=== PATIENT | female | born 2000 | race Two or more races ===

== ENCOUNTER 2024-11-13 05:30 | Emergency (ER) | payer MEDICAID, OTHER ==
[~2024-11-13] VITALS: Ht 165.1 cm; Wt 72.3 kg
[2024-11-13 05:40] VITALS: BP 148/88; PULSE 130; RESP 20; TEMP 98.7; O2SAT 97
[2024-11-13] MEDS: methylPREDNISolone SOD SUCC 125 MG/2 ML VL IM ONE (06:45)
[2024-11-13] MEDS: diphenhdrAMINE HCL 50 MG/1 ML VL IM ONE (06:45)
[2024-11-13] MEDS ORDERED: METH4PAK PO (06:47)
[2024-11-13] MEDS ORDERED: TRIA0.1O TOP (06:47)
[2024-11-13] MEDS ORDERED: CEPH500C PO (06:47)
--- NOTE | 2024-11-13 06:51 | ED.PDOC ---
History of Present Illness(SKN HPI Comments A 24 YEAR OLD FEMALE PRESENTS TO THE ED WITH COMPLAINT OF ECZEMA. PATIENT REPORTS ON SEEING HER PCP ON 10/22/24 AND 10/23/24 DUE FROM THE PATIENT HAVING SEVERE ECZEMA, AND WANTED TO SEE A SPECIALIST, BUT THEY REFUSED. ON 11/05/2024 THE PATIENT IS STARTED HAVE FULL BODY ITCHINESS AND BURNING SENSATION DUE FROM THE ECZEMA, [id number] MEDICATIONS ARE NOT WORKING AT THE MOMENT. PATIENT NOTES THAT SHE WENT TO THE ER SHE WAS GIVEN STEROIDS. PATIENT DENIES FEVER, CHILLS, SHORTNESS OF BREATH, CHEST PAIN, ABDOMINAL PAIN, NAUSEA, VOMITING, HEADACHE, OR OTHER COMPLAINTS. NO OTHER SYMPTOMS OR MODIFYING FACTORS AT THIS TIME. PATIENT IS ALERT, ORIENTED X 4, AND HAS STEADY GAIT. Chief Complaint: Rash Time Seen by MD: 06:45 History of Present Illness: Nurses Notes, Medications, Allergies Allergies: Coded Allergies: [place] (Verified Allergy, Unknown, 11/13/24) Home Meds Active Scripts Hydroxyzine Hcl (Hydroxyzine Hcl) 50 Mg Tab, 1 TAB PO BID, #30 TAB Prov:BENSON CHUNG 11/13/24 Triamcinolone Acetonide (Triamcinolone Acetonide) 0.1 % Oin, 1 APPLIC TOP BID, #80 GRAMS Prov:BENSON CHUNG 11/13/24 Cephalexin Monohydrate (Cephalexin) 500 Mg Cap, 1 CAP PO TID, #30 CAP Prov:BENSON CHUNG 11/13/24 Methylprednisolone (Medrol Dosepak) 4 Mg Isak, 4 MG PO UD, #21 TAB UAD Prov:BENSON CHUNG 11/13/24 Information Source: Patient Mode of Arrival: Ambulatory Severity: Moderate Timing: Days Duration: Since onset, Days Prehospital treatment: None Location: Generalized Mechanism: Spontaneous Onset Developed: Pruritus, Rash Occurence: Indoors Object: None Condition of Object: None Retained Foreign Body: Unknown Wound Type: Papule, Other (ECZEMA) Immunization Status of Animal: NA Tetanus: UTD History of: None Associated Signs and Symptoms: Redness Past Medical History PAST MEDICAL HISTORY: Anxiety, Asthma, Denies Past Medical History (Other): ECZEMA, PTSD Surgical History: Denies all surgeries MORNING NEWS PRODUCER History: No Pertinent MORNING NEWS PRODUCER History Family History Family History: Reviewed,noncontributory to illness, Unknown Social History Smoker: Non-Smoker Alcohol: Denies ETOH Use Drugs: Denies Drug Use Lives In: Home Constitutional: reports: others (ANXIOUS ); denies: chills, diaphoresis, fatigue, fever, malaise, sweats, weakness EENTM: denies: blurred vision, double vision, ear bleeding, ear discharge, ear drainage, ear pain, ear ringing, eye pain, eye redness, hearing loss, mouth pain, mouth swelling, nasal discharge, nose bleeding, nose congestion, nose pain, photophobia, tearing, throat pain, throat swelling, voice changes, others Respiratory: denies: cough, hemoptysis, orthopnea, SOB at rest, shortness of breath, SOB with excertion, stridor, wheezing, others Cardiovascular: denies: chest pain, dizzy spells, diaphoresis, Dyspnea on exertion, edema, irregular heart beat, left arm pain, lightheadedness, palpitations, PND, syncope, others Gastrointestinal: denies: abdomen distended, abdominal pain, blood streaked bowels, constipated, diarrhea, dysphagia, difficulty swallowing, hematemesis, melena, nausea, poor appetite, poor fluid intake, rectal bleeding, rectal pain, vomiting, others Genitourinary: denies: abnormal vagina bleeding, burning, dyspareunia, dysuria, flank pain, frequency, hematuria, incontinence, pain, , vagina discharge, urgency, others Neurological: denies: dizziness, fainting, headache, left sided numbness, left sided weakness, numbness, paresthesia, pre-existing deficit, right sided numbness, right sided weakness, seizure, speech problems, tingling, tremors, weakness, others Musculoskeletal: denies: back pain, gout, joint pain, joint swelling, muscle pain, muscle stiffness, neck pain, others Integumetry: reports: rash; denies: bruises, change in color, change in hair/nails, dryness, laceration, lesions, lumps, wounds, others Allergic/Immunocompromised: reports: Itching; denies: Difficulty Healing, Frequent Infections, Hives, others Hematologic/Lymphatic: denies: anemia, blood clots, easy bleeding, easy bruising, swollen glands, others Endocrine: denies: excessive hunger, excessive sweating, excessive thirst, excessive urination, flushing, intolerance to cold, intolerance to heat, unexplained weight gain, unexplained weight loss, others Psychiatric: denies: anxiety, bipolar disorder, depression, hopeless, panic disorder, schizophrenia, sleepless, suicidal, others All Other Systems: Reviewed and Negative Physical Exam General Appearance: No Apparent Distress, Normal, Other (ANXIOUS ) HEENT: Normal ENT Inspection, PERRL/EOMI, Pharynx Normal, TMs Normal Neck: Full Range of Motion, Non-Tender, Normal, Normal Inspection Respiratory: Chest Non-Tender, Lungs Clear, No Accessory Muscle Use, No Respiratory Distress, Normal Breath Sounds Cardiovascular: No Edema, No JVD, No Murmur, No Gallop, Normal Peripheral Pulses, Regular Rate/Rhythm Breast Exam: Deferred Gastrointestinal: No Organomegaly, Non Tender, No Pulsatile Mass, Normal Bowel Sounds, Soft Genitalia: Deferred Pelvic: Deferred Rectal: Deferred Extremities: No calf tenderness, Normal capillary refill, Normal inspection, Normal range of motion, Non-tender, No pedal edema Musculoskeletal : Apperance: Normal Neurologic: Alert, manager of case management II-XII nml as Tested, No Motor Deficits, Normal Affect, Normal Mood, No Sensory Deficits Cerebellar Function: Normal Reflexes: Normal Skin: Dry, Rash (ECZEMATOUS SKIN RASH ON UPPER BODY, MILD LOWER BODY REGIO, DRYNESS AND IRRITATION, NO SWELLING AND DRAINAGE. ), Warm Peripheral Pulses: 2+ carotid (R), 2+ carotid (L) Lymphatic: No Adenopathy Was a procedure done? Was a procedure done?: No Differential Diagnosis (INTG) Differential Diagnosis: Atopic dermatitis, Cellulitis, Contact Dermatitis, Urticaria X-Ray, Labs, Meds, VS Vital Signs Date Time Temp Pulse Resp B/P (MAP) Pulse Ox O2 Delivery O2 Flow Rate FiO2 11/13/24 05:40 98.7 130 20 148/88 97 98.7 Current Medications Medications (Trade) Dose Ordered Sig/Rudi Route Start Time Stop Time Status Last Admin Diphenhydramine HCl (Benadryl Injection) 50 mg ONCE ONCE IM 11/13/24 06:45 11/13/24 06:46 DC 11/13/24 06:45 Methylprednisolone Sodium Succinate (Solu Medrol) 125 mg ONCE ONCE IM 11/13/24 06:45 11/13/24 06:46 DC 11/13/24 06:45 X-Ray, Labs, Meds, VS Comment EXTERNAL MEDICAL RECORDS REVIEWED: [NONE] INDEPENDENT HISTORIANS: [NONE] SOCIAL DETERMINANTS OF HEALTH: [NONE] LABS ORDERED: NONE REVIEWED AND INTERPRETED RESULTS: NONE IMAGING ORDERED: NONE TREATMENTS ORDERED:SOLUMEDROL 125MG IM AND BENADRYL 50MG IM PROCEDURES PERFORMED: NONE CRITICAL CARE TIME: NONE I HAVE DISCUSSED THE PATIENT WITH THE ATTENDING PHYSICIAN DR. CLAYTON AND HE AGREES WITH THE PATIENT'S PLAN OF CARE AND DISPOSITION. BASED ON HISTORY OF PRESENT ILLNESS, AND PHYSICAL EXAM, PATIENT WILL BE DISCHARGED HOME. DISCUSSED PLAN FOR DISCHARGE HOME WITH RX [MEDROL DOSE PACK, VISTARIL, TRIAMCINOLONE 0.1% ONIT AND KEFLEX ]. MEDICATION WARNINGS GIVEN. SHARED DECISION MAKING: DISCUSSED WITH PATIENT THAT THEIR WORKUP WAS NORMAL. PATIENT INSTRUCTED TO FOLLOW UP WITH PRIMARY CARE PROVIDER IN 1-2 DAYS FOR RE- EVALUATION OF SYMPTOMS. PATIENT VERBALIZES UNDERSTANDING TO RETURN TO ED FOR NEW OR WORSENING SYMPTOMS OR IF FOLLOW UP WITH PCP CANNOT BE OBTAINED. PATIENT FEELS COMFORTABLE GOING HOME AT THIS TIME. ALL QUESTIONS ADDRESSED AT TIME OF DISCHARGE. Time of 1ST Reevaluation: 08:00 Reevaluation 1ST: Improved Patient Education/Counseling: Diagnosis, Treatment, Prognosis Family Education/Counseling: Diagnosis, Treatment, Need For Follow Up Medical Screening: No EMC Exist At This Time SEPSIS Sepsis Screen Date sepsis recognized/suspect: Nov 13, 2024 Time Sepsis recognized/suspect: 0545 Recent Procedure: No On Antibiotic Therapy: No Respiratory Rate >20: No Heart Rate >90: No Temp<36 C (96.8 F) or >38.3 C: No SBP <90 or MAP <65 mmHG: No New Acute Mental Status Change: No Is the patient on CPAP, BIPAP,: No Vital Signs Date Time Temp Pulse Resp B/P (MAP) Pulse Ox O2 Delivery O2 Flow Rate FiO2 11/13/24 05:40 98.7 130 20 148/88 97 98.7 Medications Medications Dose Ordered Sig/Rudi Route Start Time Stop Time Status Last Admin Dose Admin Diphenhydramine HCl 50 mg ONCE ONCE IM 11/13/24 06:45 11/13/24 06:46 DC 11/13/24 06:45 Methylprednisolone Sodium Succinate 125 mg ONCE ONCE IM 11/13/24 06:45 11/13/24 06:46 DC 11/13/24 06:45 Departure 1 Departure Time of Disposition: 08:00 Impression: Primary Impression: Exacerbation of eczema Disposition: HOME / SELF CARE / HOMELESS Condition: Stable Additional Instructions: FOLLOW-UP WITH PCP IN 1 TO 2 DAYS. TAKE MEDICATIONS PRESCRIBED. RETURN TO ED FOR ANY NEW OR WORSENING SYMPTOMS. e-Prescriptions Hydroxyzine Hcl (Hydroxyzine Hcl) 50 Mg Tab 1 TAB PO BID, #30 TAB Prov: BENSON CHUNG 11/13/24 Triamcinolone Acetonide (Triamcinolone Acetonide) 0.1 % Oin 1 APPLIC TOP BID, #80 GRAMS Prov: BENSON CHUNG 11/13/24 Cephalexin Monohydrate (Cephalexin) 500 Mg Cap 1 CAP PO TID, #30 CAP Prov: BENSON CHUNG 11/13/24 Methylprednisolone (Medrol Dosepak) 4 Mg Isak 4 MG PO UD, #21 TAB UAD Prov: BENSON CHUNG 11/13/24 Discharged With: Self, Relative Critical Care Note Critical Care Time?: No Stability Stability form required: No I personally scribed for BENSON CHUNG ([email or web address]) on 11/13/24 at 06:51. Electronically submitted by Levy Schwarz ([email or web address]). BENSON CHUNG Nov 13, 2024 06:51
[2024-11-13] MEDS ORDERED: HYDR50TA69 PO (07:15)
== END 2024-11-13 07:53 | disposition home or self-care (01) ==
LOC: ER 05:30
DX: L30.9 Dermatitis, unspecified (principal); Z79.899 Other long term (current) drug therapy
CPT/HCPCS: 96372; 99284; J1200; J2919